=== PATIENT | female | born 1980 | race Two or more races ===

== ENCOUNTER 2023-03-12 13:44 | Emergency (ER) | payer MEDICAID ==
[~2023-03-12] VITALS: Ht 175.3 cm; Wt 82.0 kg
[2023-03-12 13:48] VITALS: TEMP 97.7; O2SAT 99
[2023-03-12] MEDS ORDERED: LIDOCAINE 5% PATCH TOP SCH (16:30)
[2023-03-12] MEDS ORDERED: HYDROCODONE/ACETAMINOPHEN 5/325MG TABLET PO ONE (16:30)
[2023-03-12] MEDS ORDERED: KETOROLAC 30MG/ML VIAL IM ONE (16:30)
[2023-03-12] MEDS ORDERED: LIDO700A15 TP (18:07)
[2023-03-12] MEDS ORDERED: TOPUD MT (18:07)
[2023-03-12] MEDS ORDERED: CYCL5TAB MT (18:07)
[2023-03-12] MEDS ORDERED: NAPR375T5 MT (18:07)
[2023-03-12 19:04] VITALS: BP 142/77; PULSE 98; RESP 15
== END 2023-03-12 19:10 | disposition home or self-care (01) ==
LOC: ER 14:07
DX: S29.012A Strain of muscle and tendon of back wall of thorax, initial encounter (principal); E11.9 Type 2 diabetes mellitus without complications; Z79.899 Other long term (current) drug therapy; X58.XXXA Exposure to other specified factors, initial encounter; Y93.89 Activity, other specified; Y92.89 Other specified places as the place of occurrence of the external cause; Y99.8 Other external cause status
CPT/HCPCS: 99283; 71045; 81025; 96372; J1885